=== PATIENT | female | born 1990 | race Caucasian/White ===

== ENCOUNTER 2018-10-08 18:45 | Emergency (ER) | payer OTHER, SELFPAY ==
[2018-10-08 18:49] VITALS: BP 147/85; PULSE 91; RESP 16; TEMP 36.9; O2SAT 97
--- NOTE | 2018-10-08 18:54 | DI.US.S_ITS ---
PROCEDURE: US OB <= 14 WEEKS FETUS INDICATIONS: Ten weeks and spotting, beta hCG 4184.1 OUTSIDE/PRIOR DATING DATA: Last menstrual period (LMP): 07/29/18. LMP-based estimated date of delivery (NETO): 05/05/19. First dating scan (date and location): 10/08/18, [facility] Estimated date of delivery (NETO) from first dating scan: No IUP or ectopic no. TECHNIQUE: Real-time scanning was performed of the fetus and maternal pelvic organs, with image documentation. Endovaginal scanning was also performed to better visualize the fetus and maternal ovaries. COMPARISON: None. FINDINGS: Embryo: No evidence of IUP or ectopic . Thickened, heterogeneous endometrium measuring 13.4 mm. No flow within the endometrium. Measurement variability in dating: +/- 4 weeks by LMP, +/- 7 days by mean sac diameter (use before 6 weeks gestation if crown-rump length not able to be measured), +/- 5 days by crown-rump length (up to 8 weeks 6 days gestation), +/- 7 days by crown-rump length (up to 13 weeks 6 days gestation). Maternal organs: Ovaries are unremarkable. Limited images through the kidneys demonstrate no hydronephrosis. IMPRESSION: No evidence of intrauterine or ectopic . Thickened heterogeneous endometrium. Findings there are present very early or spontaneous termination of . Recommend serial beta hCGs and possible followup ultrasound in approximately 2 weeks if beta-hCG levels are rising. Dictated by: Jaime Batista M.D. on 10/08/2018 at 20:16 Approved by: Jaime Batista M.D. on 10/08/2018 at 20:23
[2018-10-08 19:38] LABS: Bacteria Urine None Seen; WBC Urine None Seen (0-5/HPF)
[2018-10-08 19:42] LABS: Culture Indicated Urine Cult Not Indicated; RBC Urine 1-5/HPF (0-5/HPF)
[2018-10-08 19:42] LABS: HCG Quantitative /Beta subunit 4184.1 mIU/mL
--- NOTE | 2018-10-08 20:30 | ED.GENADULT ---
HPI - General Adult General Chief complaint: Urogenital-Female Stated complaint: 10 wks spotting Time Seen by Provider: 10/08/18 20:30 Source: patient Mode of arrival: ambulatory Limitations: no limitations History of Present Illness HPI narrative: Patient is a 27-year-old female. at approximately 10 weeks EGA by her last menstrual cycle. She has not had an initial visit with any OB to this point. She states that earlier today she started to have some spotting. Had a couple other episodes of heavier bleeding to the point where she had to wear a panty liner. Has no abdominal tenderness. No fevers. No urinary symptoms. Related Data Allergies Allergy/AdvReac Type Severity Reaction Status Date / Time Penicillins Allergy Unknown Verified 10/08/18 18:57 Sulfa (Sulfonamide Allergy Unknown Verified 10/08/18 18:57 Antibiotics) Iodine and Iodide Containing AdvReac Unknown Hives Verified 10/08/18 18:57 Produc Review of Systems Constitutional Denies fever(s) and Denies headache(s) ENT Ears, Nose, Mouth, and Throat: Denies headache(s) Cardiovascular Denies chest pain and Denies dyspnea Respiratory Denies dyspnea Gastrointestinal Gastrointestinal: Denies abdominal pain, Denies cramping, Denies nausea and Denies vomiting Genitourinary Denies dysuria, Denies flank pain, Denies urinary urgency and Reports vaginal discharge Comments: Vaginal bleeding Musculoskeletal Denies myalgias and Denies arthralgias Integumentary/Breasts Denies rash Neurologic Denies headache(s) Hematologic/Lymphatic Denies easy bleeding and Denies easy bruising [facility] Medical History Healthy adult (Acute) Social History Smoking Status: Never smoker Social History Smoking Status: Never smoker Exam Initial Vital Signs Initial Vital Signs: Vital Signs Temperature 98.5 F 10/08/18 18:49 Pulse Rate 91 H 10/08/18 18:49 Respiratory Rate 16 10/08/18 18:49 Blood Pressure 147/85 H 10/08/18 18:49 Pulse Oximetry 97 10/08/18 18:49 Const General: cooperative, healthy appearing, comfortable, well developed, well groomed and No acute distress Orientation: alert, awake and oriented x3 Resp Effort & Inspection: normal respiratory effort Cardio Rate: regular rate GI Inspection: non-distended Palpation: soft, No firm, No guarding and No tender Skin Lesions: no lesions Rashes: no rashes Neuro General: alert, awake and oriented x3 Cognition: normal cognition Speech: speech normal Gait: normal gait Extrem General: normal to inspection and capillary refill normal Scores GCS [place] coma scale eye opening: Spontaneous [place] coma scale verbal response: Orientated [place] coma scale motor response: Obey commands [place] coma scale total score: 15 Course Orders Ordered: ED Orders 10/08/18 19:31 Urine Microscopic Stat Vital Signs - 8 hr 10/08/18 20:58 Pulse Rate 81 Respiratory Rate 18 Blood Pressure 117/92 H Pulse Oximetry 99 Medical Decision Making Lab Data Lab results reviewed: Yes I reviewed the patient's lab results. Lab Results 10/08/18 10/08/18 10/08/18 Range/Units 19:05 19:05 19:31 HCG, Quant 4184.1 mIU/mL Urine RBC 1-5/hpf (0-5/HPF) Urine WBC None seen (0-5/HPF) Urine Bacteria None seen (None) Ur Culture Indicated? Cult not indicated Blood Type A Positive Urine Dip Bedside Urine Glucose Negative Bedside Urine Bilirubin - Negative Bedside Urine Ketone - Negative Urine Specific [place] 1.020 Bedside Urine Occult Blood + Bedside Urine pH 6.0 Bedside Urine Protein - Negative Bedside Urine Urobilinogen - Negative Bedside Urine Nitrite - Negative Bedside Urine Leukocytes - Negative Esterase Point of care testing: Urine Dip Bedside Urine Glucose Negative Bedside Urine Bilirubin - Negative Bedside Urine Ketone - Negative Urine Specific [place] 1.020 Bedside Urine Occult Blood + Bedside Urine pH 6.0 Bedside Urine Protein - Negative Bedside Urine Urobilinogen - Negative Bedside Urine Nitrite - Negative Bedside Urine Leukocytes - Negative Esterase MDM Narrative Medical decision making narrative: Patient's urine is unremarkable. Blood type is Rh positive no indication for RhoGAM. HCG quant is above the discriminatory zone however no IUP is seen on the ultrasound and the ultrasound is concerning for a miscarriage. She has no abdominal tenderness. There is no other signs of ectopic . I did discuss all this with the patient and her . I feel that waiting for 48 hours and have the hCG quant redrawn to see if it lowers is appropriate in this setting. No indication for emergent OB referrals. I informed the patient that she is most likely having a miscarriage. Informed her that in 48 hours she needs to have this lab checked again. She does live in [place] which is where her OB doctor is. She has an appointment on Thursday with them. I informed her that she needed to contact them on Thursday to discuss whether not she should get the blood drawn at that point. She was given strict return precautions. She expressed understanding and agreement with plan. Discharge Plan Departure Patient Disposition: Home Clinical Impression: Threatened miscarriage Discharge Date/Time: 10/08/18 20:59 Interventions: ED Discharge Assessment Last Done: 10/08/18 20:58 Instructions: DI for Threatened Activity Restrictions/Additional Instructions: Your blood type today is A positive. your HCG level today is 4184. You do need to have a repeat blood draw on Thursday. Contact your OB provider when you arrived back to [place]. Expect some cramping and bleeding however if your symptoms worsen please return to the emergency department for further evaluation. Continue with the vitamins
--- NOTE | 2018-10-08 20:54 | PC.NURSE ---
pt states vaginal bleeding resolved about an hour before arrival.
[2018-10-08 20:58] VITALS: BP 117/92; PULSE 81; RESP 18; O2SAT 99
== END 2018-10-08 20:59 | disposition home or self-care (01) ==
PROVIDERS: Nurse Practitioner Family; Emergency Provider Emergency Medicine
DX: O20.0 Threatened abortion (principal)
CPT/HCPCS: 36415; 76801; 81003; 81015; 84702; 86900; 86901; 99282; 99283